=== PATIENT | female | born 2005 | race Two or more races ===

== ENCOUNTER 2025-06-08 03:24 | Emergency (ER) | payer SELFPAY ==
[2025-06-08 03:35] VITALS: BP 120/63; PULSE 94; RESP 18; TEMP 98.4; BMI 32.1
[2025-06-08] MEDS ORDERED: MAG HYDROX/AL HYDROX/SIMETH 30 ML UNIT-DOSE CUP ONE (03:36)
[2025-06-08] MEDS ORDERED: PANTOPRAZOLE SODIUM 40 MG VIAL ONE (03:36)
[2025-06-08] MEDS ORDERED: ONDANSETRON 4 MG/2 ML VIAL ONE (03:36)
[2025-06-08] MEDS: SODIUM CHLORIDE 0.9% 500 ML INFUS.BAG IV ONE (03:50)
[2025-06-08] MEDS: MAG HYDROX/AL HYDROX/SIMETH 30 ML UNIT-DOSE CUP PO ONE (03:51)
[2025-06-08] MEDS: PANTOPRAZOLE SODIUM 40 MG VIAL IVPUSH ONE (03:51)
[2025-06-08] MEDS: ONDANSETRON 4 MG/2 ML VIAL IVPB ONE (03:51)
[2025-06-08] MEDS ORDERED: SUCRALFATE 1 GM/10 ML UNIT DOSE CUPS ONE (04:29)
[2025-06-08] MEDS: SUCRALFATE 1 GM/10 ML UNIT DOSE CUPS PO ONE (04:33)
[2025-06-08 09:35] LABS: HCV DIAGNOSTIC IN-HOUSE W/RFLX NON-REACTIVE (NONREACTIVE); HIV INTERPRETATION NEGATIVE (NEGATIVE)
== END 2025-06-08 04:37 | disposition home or self-care (01) ==
LOC: FER 03:24
PROC: 3E033GC Introduction of Other Therapeutic Substance into Peripheral Vein, Percutaneous Approach (ICD-10-PCS; principal; 2025-06-08)
PROC: 3E033GC Introduction of Other Therapeutic Substance into Peripheral Vein, Percutaneous Approach (ICD-10-PCS; 2025-06-08)
DX: K21.9 Gastro-esophageal reflux disease without esophagitis (principal); R11.2 Nausea with vomiting, unspecified
CPT/HCPCS: 36415; 86803; 87389; 99284-25